=== PATIENT | female | born 1940 | race Caucasian/White ===

== ENCOUNTER 2017-04-18 23:23 | Emergency (ER) | payer OTHER ==
[~2017-04-18] VITALS: Ht 167.6 cm; Wt 77.3 kg
[~2017-04-18 23:23] MED LIST: ANUSOL HC,ANUCO25 MG PR; ATIVAN2 MG PO; CENTRUM ULTRA1 EAC1 PO; Chronulac,Cephulac,E PO; Cipro PO; D3 DOTS2000 UNIT PO; Decadron PO; ENSURE113 GM PO; HYDROCHLOROTHIA25 MG PO; LEVOTHYROXINE50 MCG PO; LORAZEPAM0.5 MG PO; LYRICA25 MG PO; Levothroid,Synthroid PO; MACROBID100 MG PO; MICROZIDE12.5 M1 PO; PERCOCET 5/31 TABLET PO; PROMETHAZINE HC25 M1 PO; RITUXAN10 MG/ML IV; SYNTHROID25 MCG PO; VAGIFEM10 MCG VG; VALTREX1000 MG PO; VITAMIN D2000 INTUN PO; XALATAN2.5 ML BOTH EYES; Xalatan 0.005% Ophth BOTH EYES
[2017-04-19 01:08] LABS: MCH 29.9 PG (29.0-34.0); MCHC 34.1 G/DL (30.0-36.0); MCV 87.8 FL (83-99); MEAN PLAT.VOLUME 10.2 uM^3 (9.5-12.4); PLATELET COUNT 146 K/uL (156-360); RBC DIS.WIDTH-SD 41.8 % (39-53); RED BLOOD COUNT 5.01 M/uL (3.80-5.20); WHITE BLOOD COUNT 6.8 K/uL (4.1-10.2)
[2017-04-19 01:16] LABS: CHLORIDE 101 mEq/L (99-109); POTASSIUM 3.9 mEq/L (3.7-5.4); SODIUM 135 mEq/L (136-147)
[2017-04-19 01:18] LABS: GLUCOSE 116 mg/dL (70-99)
[2017-04-19 01:20] LABS: ANION GAP 9 MEQ/L (2-14)
[2017-04-19 01:22] LABS: GFR ESTIMATE (CALCULATED) > 59 mL/min/
[2017-04-19 01:23] LABS: UREA NITROGEN (BUN) 10 mg/dL (9-23)
[2017-04-19 01:25] LABS: URIC ACID 5.8 mg/dL (3.1-9.2)
[2017-04-19 02:29] LABS: C-REACTIVE PROTEIN 40.2 MG/L (0-10); SAMPLE HEMOLYSIS CHECK 0; SAMPLE ICTERIC CHECK 0; SAMPLE LIPEMIA CHECK 0
[2017-04-19 03:40] VITALS: BP 136/78
== END 2017-04-19 03:40 | disposition home or self-care (01) ==
LOC: EME 23:23 → RME 23:23
PROVIDERS: Nurse Practitioner Family
DX: M25.461 Effusion, right knee (principal); M17.0 Bilateral primary osteoarthritis of knee; Z85.72 Personal history of non-Hodgkin lymphomas; Z88.5 Allergy status to narcotic agent; Z88.2 Allergy status to sulfonamides; Z88.0 Allergy status to penicillin; Z88.1 Allergy status to other antibiotic agents; Z88.8 Allergy status to other drugs, medicaments and biological substances
CPT/HCPCS: 73564; 80048; 84550; 85027; 86140; 99281; 99285; J3010